=== PATIENT | male | born 1945 | race Caucasian/White ===

== ENCOUNTER → 2022-04-19 | Outpatient (CLI) | payer OTHER ==
--- NOTE | 2022-04-19 15:55 | NM ---
EXAMINATION TYPE: NM DatScan Brain SPECT DATE OF EXAM: 04/19/2022 COMPARISON: NONE HISTORY: Memory loss TECHNIQUE: 10 drops of Lugol's solution was administered 1 hour prior to injection as a thyroid bloc mariana agent. After the administration of 4.8 mCi I-123 Ioflupane DaTscan. Images obtained [address] injection. SPECT images of the brain were acquired with axial and coronal reconstructions. FINDINGS: The axial SPECT images demonstrate increased background activity and symmetric activity wit hin the bilateral striata. IMPRESSION: Normal appearance. Essential tremor in the differential diagnosis.
== END | disposition home or self-care (01) ==
LOC: RADNMMAIN 10:20
PROVIDERS: ATTEND Psychiatry & Neurology Neurology
DX: G25.0 Essential tremor (principal)
CPT/HCPCS: 78803; A9584

== ENCOUNTER 2023-10-15 00:37 | Observation (INO) | payer OTHER, MEDICARE ==
--- NOTE | 2023-10-15 01:07 | ED ---
General Adult HPI - General Chief complaint: Chest Pain Stated complaint: Chest Pain Time Seen by Provider: 10/15/23 00:40 Source: patient, EMS Mode of arrival: EMS Limitations: no limitations - History of Present Illness Initial comments: Dictation was produced using [employer] dictation software. please excuse any grammatical, word or spelling errors. Chief Complaint: 78-year-old male presents to the emergency department chest pain History of Present Illness: Patient 78-year-old male presents emergency department with chest pain x 1 day. Patient was brought in by EMS. Patient denies any cardiac history. States that he has history of MS. Does not have any history of any other comorbidities. Patient states that the pain is sharp to his right substernal area. Nonradiating not associate diaphoresis or nausea. States that is sharp worse with deep inspiration. The ROS documented in this emergency department record has been reviewed and co nfirmed by me. Those systems with pertinent positive or negative responses have been documented in the HPI. All other systems are other negative and/or noncontributory. - Related Data Allergies Allergy/AdvReac Type Severity Reaction Status Date / Time acetaminophen [From Tylenol] AdvReac Rash/Hives Verified 10/15/23 00:48 Review of Systems ROS Statement: Those systems with pertinent positive or pertinent negative responses have been documented in the HPI. ROS Other: All systems not noted in ROS Statement are negative. Past Medical History Additional Past Medical History / Comment(s): MS History of Any Multi-Drug Resistant Organisms: None Reported Past Surgical History: No Surgical Hx Reported Past Psychological History: No Psychological Hx Reported Smoking Status: Former smoker Past Alcohol Use History: None Reported Past Drug Use History: None Reported General Exam - General Exam Comments Initial Comments: PHYSICAL EXAM: General Impression: Alert and oriented x3, not in acute distress HEENT: Normocephalic atraumatic, extra-ocular movements intact, pupils equal and reactive to light bilaterally, mucous membranes moist. Cardiovascular: Heart regular rate and rhythm Chest: Able to complete full sentences, no retractions, no tachypnea Abdomen: abdomen soft, non-tender, non-distended, no organomegaly Musculoskeletal: Pulses present and equal in all extremities, no peripheral edema Motor: no focal deficits noted Neurological: CN II-XII grossly intact, no focal motor or sensory deficits noted Skin: Intact with no visualized rashes Psych: Normal affect and mood Limitations: no limitations Course Vital Signs 10/15/23 10/15/23 10/15/23 00:43 00:47 02:30 Temperature 98.4 F Pulse Rate 65 61 Pulse Rate [ 68 Typist ] Respiratory 18 18 Rate Blood Pressure 140/73 134/63 O2 Sat by Pulse 97 97 Oximetry EKG Findings - EKG Comments: EKG Findings:: My EKG interpretation: Ventricular rate 67, sinus rhythm,. Well 207, cures 89, QTc 4 1. No SD prolongation, no QTC prolongation, no ST or T-wave changes noted. Overall, this EKG is unremarkable Medical Decision Making - Medical Decision Making Was pt. sent in by a medical professional or institution (, PA, VETERINARY ATTENDANT, urgent care, hospital, or long term...) When possible be specific @ -No Did you speak to anyone other than the patient for history (EMS, parent, family, police, friend...)? What history was obtained from this source @ -No Did you review nursing and triage notes (agree or disagree)? Why? @ -I reviewed and agree with nursing and triage notes Were old charts reviewed (outside hosp., previous admission, EMS record, old EKG, old radiological studies, urgent care reports/EKG's, long term records)? Report findings @ -No Differential Diagnosis (chest pain, altered mental status, abdominal pain women, abdominal pain men, vaginal bleeding, musculoskeletal, weakness, fever, dyspnea, syncope, headache, dizziness, GI bleed, back pain, seizure, CVA, palpatations, mental health)? @ -Differential Chest Pain: Stable Angina, Unstable Angina, STEMI, NSTEMI Aortic Dissection, Pneumothorax, Musculoskeletal, Esophageal Spasm GERD, Cholecystitis, Pancreatitis, Zoster, this is not meant to be an all-inclusive list. EKG interpreted by me (3pts min.). @ -See above X-rays interpreted by me (1pt min.). @ -None done CT interpreted by me (1pt min.). @ -CT angiography chest shows no acute processes U/S interpreted by me (1pt. min.). @ -None done What testing was considered but not performed or refused? (CT, X-rays, U/S, labs)? Why? @ -None What meds were considered but not given or refused? Why? @ -None Was smoking cessation discussed for >3mins.? @ -No Were there social determinants of health that impacted care today? How? (Homelessness, low income, unemployed, alcoholism, drug addiction, transportation, low edu. Level, literacy, decrease access to med. care, [place] [facility], rehab)? @ -No Was there de-escalation of care discussed even if they declined (Discuss DNR or withdrawal of care, Hospice)? DNR status @ -No What co-morbidities impacted this encounter? (DM, HTN, Smoking, COPD, CAD, Cancer, CVA, ARF, Chemo, Hep., AIDS, mental health diagnosis, sleep apnea, mo rbid obesity)? @ -None Was patient admitted / discharged? Hospital course, mention meds given and r oute, prescriptions, significant lab abnormalities, going to OR and other pertinent info. @ -78-year-old male presents emergency department with atypical chest pain typical features. Vital signs upon arrival are within acceptable limits. Patient given aspirin by prehospital providers. Laboratory evaluation obtained. Labs are within acceptable limits except for D-dimer 1.09. Patient sent for CT angiography which was negative for PE or any acute processes. Patient will be admitted observation consultation to cardiology. Did you discuss the management of the patient with other professionals (professionals i.e. , PA, VETERINARY ATTENDANT, lab, RT, psych nurse, marriage and family social worker, cheese grader, teacher, staff submarine warfare officer, briefcase sewer)? Give summary @ -Case discussed with hospitalist for admission Was critical care preformed (if so, how long)? @ -No Undiagnosed new problem with uncertain prognosis? @ -No Drug Therapy requiring intensive monitoring for toxicity (Heparin, Nitro, Insulin, Cardizem)? @ -No Were any procedures done? @ -No Diagnosis/symptom? Acute, or Chronic, or Acute on Chronic? Uncomplicated (without systemic symptoms) or Complicated (systemic symptoms)? @ -Chest pain Side effects of treatment? @ -No Exacerbation, Progression, or Severe Exacerbation? @ -No Poses a threat to life or bodily function? How? (Chest pain, USA, NM, pneumonia, PE, COPD, DKA, ARF, appy, cholecystitis, CVA, Diverticulitis, Homicidal, Suicidal, threat to staff... and all critical care pts) @ -yes - Lab Data Result diagrams: 10/15/23 01:02 10/15/23 01:02 Lab Results 10/15/23 10/15/23 10/15/23 Range/Units 01:02 01:02 01:02 WBC 7.0 (3.8-10.6) k/uL RBC 4.30 (4.30-5.90) m/uL Hgb 12.8 L (13.0-17.5) gm/dL Hct 39.4 (39.0-53.0) % MCV 91.6 (80.0-100.0) fL MCH 29.8 (25.0-35.0) pg MCHC 32.5 (31.0-37.0) g/dL RDW 13.3 (11.5-15.5) % Plt Count 240 (150-450) k/uL MPV 7.8 Neutrophils % 65 % Lymphocytes % 24 % Monocytes % 6 % Eosinophils % 2 % Basophils % 0 % Neutrophils # 4.5 (1.3-7.7) k/uL Lymphocytes # 1.7 (1.0-4.8) k/uL Monocytes # 0.4 (0-1.0) k/uL Eosinophils # 0.2 (0-0.7) k/uL Basophils # 0.0 (0-0.2) k/uL D-Dimer 1.09 H (<0.60) mg/L FEU Sodium 140 (137-145) mmol/L Potassium 4.3 (3.5-5.1) mmol/L Chloride 108 H (98-107) mmol/L Carbon Dioxide 24 (22-30) mmol/L Anion Gap 8 mmol/L BUN 22 H (9-20) mg/dL Creatinine 1.16 (0.66-1.25) mg/dL Est GFR (CKD-EPI)AfAm 70 (>60 ml/min/1.73 sqM) Est GFR (CKD-EPI)NonAf 61 (>60 ml/min/1.73 sqM) Glucose 103 H (74-99) mg/dL Calcium 8.8 (8.4-10.2) mg/dL Total Bilirubin 0.5 (0.2-1.3) mg/dL AST 23 (17-59) U/L ALT 14 (4-49) U/L Alkaline Phosphatase 87 (38-126) U/L Troponin I (0.000-0.034) ng/mL NT-Pro-B Natriuret Pep 203 pg/mL Total Protein 6.6 (6.3-8.2) g/dL Albumin 4.1 (3.5-5.0) g/dL 10/15/23 Range/Units 01:02 WBC (3.8-10.6) k/uL RBC (4.30-5.90) m/uL Hgb (13.0-17.5) gm/dL Hct (39.0-53.0) % MCV (80.0-100.0) fL MCH (25.0-35.0) pg MCHC (31.0-37.0) g/dL RDW (11.5-15.5) % Plt Count (150-450) k/uL MPV Neutrophils % % Lymphocytes % % Monocytes % % Eosinophils % % Basophils % % Neutrophils # (1.3-7.7) k/uL Lymphocytes # (1.0-4.8) k/uL Monocytes # (0-1.0) k/uL Eosinophils # (0-0.7) k/uL Basophils # (0-0.2) k/uL D-Dimer (<0.60) mg/L FEU Sodium (137-145) mmol/L Potassium (3.5-5.1) mmol/L Chloride (98-107) mmol/L Carbon Dioxide (22-30) mmol/L Anion Gap mmol/L BUN (9-20) mg/dL Creatinine (0.66-1.25) mg/dL Est GFR (CKD-EPI)AfAm (>60 ml/min/1.73 sqM) Est GFR (CKD-EPI)NonAf (>60 ml/min/1.73 sqM) Glucose (74-99) mg/dL Calcium (8.4-10.2) mg/dL Total Bilirubin (0.2-1.3) mg/dL AST (17-59) U/L ALT (4-49) U/L Alkaline Phosphatase (38-126) U/L Troponin I <0.012 (0.000-0.034) ng/mL NT-Pro-B Natriuret Pep pg/mL Total Protein (6.3-8.2) g/dL Albumin (3.5-5.0) g/dL Disposition Clinical Impression: Chest pain Disposition: ADMITTED IP TO THIS HOSP Condition: Fair Referrals: [facility],Clinic [Primary Care Provider] - 1-2 days Decision Time: 04:37
[2023-10-15 01:24] LABS: Basophils % (A) 0 %; Eosinophils # (A) 0.2 k/uL (0-0.7); Eosinophils % (A) 2 %; HCT 39.4 % (39.0-53.0); HGB 12.8 gm/dL (13.0-17.5); Lymphocytes # (A) 1.7 k/uL (1.0-4.8); Lymphocytes % (A) 24 %; MCH 29.8 pg (25.0-35.0); MCHC 32.5 g/dL (31.0-37.0); MCV 91.6 fL (80.0-100.0); Mean Platelet Volume 7.8; Monocytes # (A) 0.4 k/uL (0-1.0); Monocytes % (A) 6 %; Neutrophils # (A) 4.5 k/uL (1.3-7.7); Neutrophils % (A) 65 %; Platelet Count 240 k/uL (150-450); RDW 13.3 % (11.5-15.5)
[2023-10-15 01:39] LABS: ALT 14 U/L (4-49); AST 23 U/L (17-59); African American GFR (CKD) 70 (>60 ml/min/1.73 sqM); Albumin 4.1 g/dL (3.5-5.0); Alkaline Phosphatase 87 U/L (38-126); Anion Gap 8 mmol/L; Blood Urea Nitrogen 22 mg/dL (9-20); Calcium 8.8 mg/dL (8.4-10.2); Carbon Dioxide 24 mmol/L (22-30); Chloride 108 mmol/L (98-107); Glucose 103 mg/dL (74-99); Non-African American GFR(CKD) 61 (>60 ml/min/1.73 sqM); Potassium 4.3 mmol/L (3.5-5.1); Sodium 140 mmol/L (137-145); Total Bilirubin 0.5 mg/dL (0.2-1.3); Total Protein 6.6 g/dL (6.3-8.2)
[2023-10-15 01:47] LABS: NT-Pro-B-Type Natriuretic Pept 203 pg/mL
--- NOTE | 2023-10-15 03:32 | CT ---
EXAM: CT Angiography Chest With Intravenous Contrast CLINICAL HISTORY: ITS.REASON CT Reason: positive D-dimer TECHNIQUE: Axial computed tomographic angiography images of the chest with intravenous contrast. CTDI is 17.8 mGy and DLP is 475.4 mGy-cm. This CT exam was performed using one or more of the following dose reduction techniques: automated exposure control, adjustment of the mA and/or kV according to patient size, and/or use of iterative reconstruction technique. MIP reconstructed images were created and reviewed. COMPARISON: No relevant prior studies available. FINDINGS: Pulmonary arteries: Unremarkable. No acute pulmonary embolism. Aorta: Atherosclerotic changes of the aorta. No thoracic aortic aneurysm. Lungs: Atelectasis at the lung bases. No mass. Pleural space: Unremarkable. No significant effusion. No pneumothorax. Heart: Unremarkable. No cardiomegaly. No significant pericardial effusion. No evidence of RV dysfunction. Bones/joints: Degenerative changes of the spine. No acute fracture. No dislocation. Soft tissues: Unremarkable. Lymph nodes: Unremarkable. No enlarged lymph nodes. Liver: Hepatic steatosis. Gallbladder and bile ducts: Cholecystectomy. IMPRESSION: No acute pulmonary embolism.
[2023-10-15] MEDS ORDERED: NITROGLYCERIN SL TABS 0.4 MG TAB SUBLINGUAL PRN (04:34)
--- NOTE | 2023-10-15 04:54 | P.HPIM ---
History of Present Illness H&P Date: 10/15/23 Patient is a 78-year-old male with a PMH of multiple myeloma who presents to the emergency room with complaints of left-sided chest discomfort. Patient reports that his pain started roughly around 5 PM with severe left-sided and substernal pleuritic chest discomfort, 8 out of 10 at maximal intensity, with no associated symptoms. He does report that earlier in the day he was out doing grocery benson pping with his and was pushing heavier than usual cart. He denies experiencing lower extremity swelling or pain. Also denies recent immobilization or trips. Denies fever, chills, cough, shortness of breath, nausea, vomiting, diaphoresis, or dizziness. Reports that the pain has persisted since onset at 5 PM and is somewhat unchanged at the time of interview. Chest CTA in the emergency room was unremarkable with EKG showing normal sinus rhythm at [address]/T wave changes noted as reviewed by me. Laboratory evaluation was remarkable for troponin less than 0.012, proBNP 203, WBC count 7.0, hemoglobin 12.8, platelet count 240, D-dimer 1.09, sodium 140, chloride 108, BUN 22, creatinine 1.16. ED documentation reviewed and case discussed with ED provider. Review of systems: Pertinent positives and negatives as discussed in HPI, a complete review of systems was performed and all other systems are negative. Physical examination: Vital signs reviewed General: non toxic, no distress, appears at stated age, obese Derm: no unusual rashes/lesions, warm Head: atraumatic, normocephalic, symmetric Eyes: EOMI, no lid lag, anicteric sclera, pupils equal round reactive to light ENT: Nose and ears atraumatic Neck: No cervical lymphadenopathy, trachea midline, supple Mouth: no lip lesion, mucus membranes moist Cardiovascular: S1S2 reg, no murmur, positive dorsalis pedis pulse bilateral, no edema, no tenderness on chest palpation Lungs: CTA bilateral, no rhonchi, no rales, no accessory muscle use Abdominal: soft, nontender to palpation, no guarding Ext: muscle strength 5 out of 5 in all 4 extremities grossly, no gross muscle atrophy, no contractures, Neuro: CN II-XI grossly intact, no gross focal neuro deficits Psych: Alert, oriented, appropriate affect Assessment: Atypical chest pain Chronic conditions: Multiple myeloma Imaging: Chest CTA in the emergency room was unremarkable with EKG showing normal sinus rhythm at [address]/T wave changes noted as reviewed by me. Data Review: Laboratory evaluation was remarkable for troponin less than 0.012, proBNP 203, WBC count 7.0, hemoglobin 12.8, platelet count 240, D-dimer 1.09, sodium 140, chloride 108, BUN 22, creatinine 1.16. Plan: Cardiology consulted Cardiac monitoring Trend troponin Continue with aspirin and statin DVT prophylaxis: Lovenox subcu The patient is admitted with an anticipated fewer than 2 midnight stay for evaluation of chest pain CODE STATUS: Full Code Discussed with: Patient Anticipated discharge place: Home Past Medical History Additional Past Medical History / Comment(s): MS History of Any Multi-Drug Resistant Organisms: None Reported Past Surgical History: No Surgical Hx Reported Past Psychological History: No Psychological Hx Reported Smoking Status: Former smoker Past Alcohol Use History: None Reported Past Drug Use History: None Reported - Past Family History Mother Family Medical History: Hyperlipidemia Medications and Allergies Allergies Allergy/AdvReac Type Severity Reaction Status Date / Time acetaminophen [From Tylenol] AdvReac Rash/Hives Verified 10/15/23 00:48 Physical Exam Vitals: Vital Signs Temp Pulse Pulse Resp BP Pulse Ox 10/15/23 02:30 61 18 134/63 97 10/15/23 00:47 68 10/15/23 00:43 98.4 F 65 18 140/73 97 Intake and Output 10/14/23 10/14/23 10/15/23 14:59 22:59 06:59 Other: Weight 88.451 kg Results CBC & Chem 7: 10/15/23 01:02 10/15/23 01:02 Labs: Abnormal Lab Results - Last 24 Hours (Table) 10/15/23 10/15/23 10/15/23 Range/Units 01:02 01:02 01:02 Hgb 12.8 L (13.0-17.5) gm/dL D-Dimer 1.09 H (<0.60) mg/L FEU Chloride 108 H (98-107) mmol/L BUN 22 H (9-20) mg/dL Glucose 103 H (74-99) mg/dL
[2023-10-15] MEDS: ATORVASTATIN 80 MG TAB PO STA (05:55)
[2023-10-15] MEDS: ENOXAPARIN 40 MG/0.4 ML SYRINGE SQ SCH (08:46)
--- NOTE | 2023-10-15 10:42 | P.CRDCN ---
History of Present Illness Consult date: 10/15/23 Consult reason: chest pain History of present illness: This is a 78-year-old male with no previous cardiac history, does not follow with a upper leather cutter. Patient presented to the hospital with sharp right substernal chest pain, nonradiating. No diaphoresis no nausea. Pain was worse with deep inspiration. He states the pain was very severe yesterday and was not sure what caused the pain to start. He states he is active and usually does ya [employer] work and does not have an issue with chest pain. He states it was only in 1 spot did not radiate anywhere. Blood pressure 129/72, heart rate 61, pulse ox 95% on room air. Afebrile. Patient has been started on aspirin 325 mg, a atorvastatin 80 mg, Lovenox and Nitrostat. EKG: Sinus rhythm with no acute ST-T wave changes. CTA of the chest reveals no pulmonary embolism. Laboratory studies: WBC 7, hemoglobin 12.8. D-dimer 1.09. Sodium 140, potassium 4.3, BUN 22 creatinine 1.16. Troponin negative x 2. proBNP 203. Home cardiac medications: None Review Of Systems: At the time of my exam: CONSTITUTIONAL: Denies fever or chills. HEENT: Denies blurred vision, vision changes, or eye pain. Denies hemoptysis CARDIOVASCULAR: Denies chest pain. Denies orthopnea. Denies PND. Denies palpitations RESPIRATORY: Denies shortness of breath. GASTROINTESTINAL: Denies abdominal pain. Denies nausea or vomiting. HEMATOLOGIC: Denies bleeding disorders. GENITOURINARY: Denies any blood in urine. SKIN: Denies puritis. Denies rash. Physical examination: Gen: This is a 78-year-old male in no acute distress VS: reviewed HEENT: Head is atraumatic, normocephalic. Pupils equal, round. Sclerae is anicte guerline. NECK: Supple. No JVD. LUNGS: Clear to auscultation. No wheezes or rhonchi. No intercostal re tractions. HEART: Regular rate and rhythm. No murmur. ABDOMEN: Soft No tenderness. EXTREMITIES: No pedal edema. No calf tenderness. NEUROLOGICAL: Patient is awake, alert and oriented x3. Assessment: Atypical chest pain, acute coronary syndrome ruled out Memory loss Plan: Schedule patient for dobutamine stress test tomorrow Obtain 2-D echocardiogram and Doppler study to assess cardiac structure and function If testing is unremarkable, patient is cleared for discharge home tomorrow Further recommendations to follow based upon clinical course Thank you kindly for this consultation. Nurse practitioner note has been reviewed, I agree with documented findings and plan of care. Patient was seen and examined. Past Medical History Additional Past Medical History / Comment(s): MS History of Any Multi-Drug Resistant Organisms: None Reported Past Surgical History: No Surgical Hx Reported Past Psychological History: No Psychological Hx Reported Smoking Status: Former smoker Past Alcohol Use History: None Reported Past Drug Use History: None Reported - Past Family History Mother Family Medical History: Hyperlipidemia Medications and Allergies Home Medications Medication Instructions Recorded Confirmed Type Donepezil [Aricept] 10 mg PO DAILY 10/15/23 10/15/23 History Allergies Allergy/AdvReac Type Severity Reaction Status Date / Time acetaminophen [From Tylenol] AdvReac Rash/Hives Verified 10/15/23 09:55 Physical Exam Vitals: Vital Signs Temp Pulse Pulse Resp BP Pulse Ox 10/15/23 06:00 61 20 129/72 95 10/15/23 05:00 68 18 144/97 97 10/15/23 02:30 61 18 134/63 97 10/15/23 00:47 68 10/15/23 00:43 98.4 F 65 18 140/73 97 Intake and Output 10/14/23 10/15/23 10/15/23 22:59 06:59 14:59 Other: Weight 88.451 kg Results 10/15/23 01:02 10/15/23 01:02 Cardiac Enzymes 10/15/23 10/15/23 10/15/23 Range/Units 01:02 01:02 06:13 AST 23 (17-59) U/L Troponin I <0.012 <0.012 (0.000-0.034) ng/mL CBC 10/15/23 Range/Units 01:02 WBC 7.0 (3.8-10.6) k/uL RBC 4.30 (4.30-5.90) m/uL Hgb 12.8 L (13.0-17.5) gm/dL Hct 39.4 (39.0-53.0) % Plt Count 240 (150-450) k/uL Comprehensive Metabolic Panel 10/15/23 Range/Units 01:02 Sodium 140 (137-145) mmol/L Potassium 4.3 (3.5-5.1) mmol/L Chloride 108 H (98-107) mmol/L Carbon Dioxide 24 (22-30) mmol/L BUN 22 H (9-20) mg/dL Creatinine 1.16 (0.66-1.25) mg/dL Glucose 103 H (74-99) mg/dL Calcium 8.8 (8.4-10.2) mg/dL AST 23 (17-59) U/L ALT 14 (4-49) U/L Alkaline Phosphatase 87 (38-126) U/L Total Protein 6.6 (6.3-8.2) g/dL Albumin 4.1 (3.5-5.0) g/dL Current Medications Generic Name Dose Route Start Last Admin Trade Name Freq PRN Reason Stop Dose Admin Aspirin 325 mg 10/16/23 09:00 Aspirin 325 Mg Tab PO DAILY GARRISON Atorvastatin Calcium 80 mg 10/15/23 21:00 Atorvastatin 80 Mg Tab PO HS [facility] Enoxaparin Sodium 40 mg 10/15/23 09:00 Enoxaparin 40 Mg/0.4 Ml Syringe SQ DAILY GARRISON Nitroglycerin 0.4 mg 10/15/23 04:34 Nitroglycerin Sl Tabs 0.4 Mg Tab SUBLINGUAL Q5M PRN Chest Pain Intake and Output 10/14/23 10/15/23 10/15/23 22:59 06:59 14:59 Other: Weight 88.451 kg 10/15/23 01:02 10/15/23 01:02
[2023-10-15] MEDS ORDERED: MELATONIN 5 MG TABLET PO PRN (10:56)
[2023-10-15] MEDS ORDERED: ALBUTEROL NEBULIZED 2.5 MG/3 ML INHALATION PRN (10:56)
[2023-10-15] MEDS ORDERED: ONDANSETRON 4 MG/2 ML VIAL IVP PRN (10:56)
--- NOTE | 2023-10-15 16:14 | P.PN ---
Progress Note - Text Progress Note Date: 10/15/23 (delayed charting seen at 1020) Hospitalist Interval Note Patient seen and examined at bedside. Currently chest pain-free, feeling back to baseline. Has a history of multiple sclerosis not multiple myeloma. No longer on injectable medications at the recommendation of his neurologist. Vital signs reviewed General: Non toxic, no distress, appears at stated age Cardiovascular: S1S2 reg, no murmur, positive posterior tibial pulse bilateral, Lungs: CTA bilateral, no rhonchi, no rales, no accessory muscle use Abdominal: Soft, nontender to palpation, no guarding, no appreciable organomegaly Ext: No gross muscle atrophy, no edema, no contractures Assessment/Plan: Chest pain -Patient currently chest pain free. Feeling much better. Willing to stay until tomorrow for dobutamine stress test. -Remainder of plan remains unchanged. This is an update note for patient , for full note on 10/15/2023 see H&P. There is no charge associated with this note.
[2023-10-15] MEDS: ATORVASTATIN 80 MG TAB PO SCH (21:39)
[2023-10-16] MEDS ORDERED: DOBUTamine DRIP for NUC MED 500 MG in DEXTROSE/WATER 1 250ML.BAG IV PRN (06:00)
[2023-10-16] MEDS ORDERED: DOBUTamine DRIP for NUC MED 500 MG/250 ML BAG IV ONE (08:00)
[2023-10-16] MEDS: DONEPEZIL 10 MG TAB PO SCH (08:37)
[2023-10-16] MEDS: ASPIRIN 325 MG TAB PO SCH (08:38)
[2023-10-16 11:06] LABS: Chol/HDL Ratio 3.08 Ratio; LDL Cholesterol,Calculated 84.3 mg/dL (0.0-131.0)
--- NOTE | 2023-10-16 12:20 | CA ---
Dobutamine Stress Echocardiogram Report David Sheets Age: 78 Gender: M : 1945 Exam Date: 10/16/2023 09:43 Exam Location: [facility] Ordering Physician: Amina Hernandez Referring Physician: [id number] Jaramillo Assistant Corporate Controller: Dana Chavira RDCS Technologist: Ht (in): 65 Wt (lb): 195 Procedure CPT: Indication: Chest Pain ICD-9 Codes: Rhythm: Patient History: CHEST PAIN, DIFFICULTY IN BREATHING, PRIOR SMOKER Cardiac Medications: Medications in past 24 hours: Contrast: N/A Total Dose (mL): Stress Results Protocol: Dobutamine Peak Dose (???g/kg/min): 20 Duration (min:sec): Atropine:(mg) Target HR: 122 Double Product: Resting HR: 68 Resting BP: 125 / 75 Peak HR: 126 Peak BP: 156 / 50 Max Predicted HR: 143 88 % Max Predicted HR Stress Summary: BP Response: Reason for Termination: Target HR Cardiac Symptoms: NO SYMPTOMS ECG Analysis Resting EKG: Stress EKG: Arrhythmia: Echo Analysis Base Echo Analysis: Low Echo Anaylsis: Peak Echo Analysis: Recovery Echo: MEASUREMENTS (Male/Female) Normal Values CONCLUSIONS Patient underwent dobutamine stress echo with infusion of dobutamine into Stage 3 for a total of 7 minutes and 37 seconds. Patient's maximum heart rate was 126 which represented 88% age- predicted maximum heart rate. Stress EKG portion: At baseline patient's EKG showed normal sinus rhythm, normal axis, no significant ST or T wave abnormalities. At peak dobutamine infusion, EKG showed no significant change from baseline. Stress echo portion: 2-D echocardiogram was performed in the parasternal long, personal short, apical 2 and apical four-chamber views at rest, low-dose, peak infusion and in recovery. At baseline, echocardiogram showed left ventricular ejection fraction 55% without wall motion abnormalities. With peak infusion, echocardiogram shows improvement in left ventricular ejection fraction, increase contractility, decrease in left ventricular end systolic dimension without wall motion abnormalities consistent with a normal response to dobutamine. Conclusions: 1. Normal stress EKG and echo response to dobutamine infusion without any evidence of inducible ischemia. Dr. Frank Magana DO (Electronically Signed) Final Date: 16 October 2023 12:19
[2023-10-16 14:37] VITALS: BP 126/72; PULSE 63; RESP 15; TEMP 98
--- NOTE | 2023-10-16 14:59 | P.PN ---
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 Patient presented to the hospital with sharp right substernal chest pain, nonradiating. No diaphoresis no nausea. Pain was worse with deep inspiration. He states the pain was very severe yesterday and was not sure what caused the pain to start. He states he is active and usually does yard work and does not have an issue with chest pain. He states it was only in 1 spot did not radiate anywhere. Blood pressure 129/72, heart rate 61, pulse ox 95% on room air. Afebrile. Patient has been started on aspirin 325 mg, a atorvastatin 80 mg, Lovenox and Nitrostat. EKG: Sinus rhythm with no acute ST-T wave changes. CTA of the chest reveals no pulmonary embolism. Laboratory studies: WBC 7, hemoglobin 12.8. D-dimer 1.09. Sodium 140, potassium 4.3, BUN 22 creatinine 1.16. Troponin negative x 2. proBNP 203. Home cardiac medications: None 10/15 patient seen and examined. Patient still having reproducible chest pain with palpation of his left fifth rib. He underwent dobutamine stress echo which shows no inducible ischemia. Physical examination: Gen: This is a 78-year-old male in no acute distress VS: reviewed HEENT: Head is atraumatic, normocephalic. Pupils equal, round. Sclerae is anicteric. NECK: Supple. No JVD. LUNGS: Clear to auscultation. No wheezes or rhonchi. No intercostal retractions. HEART: Regular rate and rhythm. No murmur. ABDOMEN: Soft No tenderness. EXTREMITIES: No pedal edema. No calf tenderness. NEUROLOGICAL: Patient is awake, alert and oriented x3. Assessment: Atypical chest pain, acute coronary syndrome ruled out Memory loss Plan: stress test shows no inducible ischemia and chest pain is atypical more reproducible. Stable for discharge home from a cardiology standpoint. Objective - Vital Signs Vital signs: Vital Signs Temp 98.0 F 10/16/23 14:36 Pulse 63 10/16/23 14:36 Resp 15 10/16/23 14:36 BP 126/72 10/16/23 14:36 Pulse Ox 97 10/16/23 14:36 FiO2 Intake & Output 10/15/23 10/16/23 10/16/23 18:59 06:59 18:59 Intake Total 0 118 Balance 0 118 Weight 88.451 kg Intake: Oral 0 118 Other: Voiding Method Toilet # Voids 1 3 # Bowel Movements 1 - Labs CBC & Chem 7: 10/15/23 01:02 10/15/23 01:02
--- NOTE | 2023-10-16 15:06 | P.DS ---
Providers Date of admission: 10/15/23 04:34 Expected date of discharge: 10/16/23 Attending physician: Ranjeet Cowart MD Consults: 10/15/23 04:34 Consult Physician Urgent Consulting Provider: Frank Magana Consult Reason/Comments: chest pain Do you want consulting provider notified?: Yes Primary care physician: [facility] Hospital Course: Discharge Diagnosis: Chest pain, acute coronary event ruled out. Multiple sclerosis Elevated D-dimer, CTA negative for PE. Hospital Course: Patient is a pleasant 78-year-old male with a past medical history of MS. He presented to the emergency on 10/15/2023 with a chief complaint of chest pain. Upon arrival to our facility, patient underwent evaluation in the emergency department. Vital signs upon arrival show blood pressure 140/73, heart rate 65, respiratory rate 18, temp 98.4 F, and SpO2 of 97% on room air. EKG completed showing normal sinus rhythm at 67 bpm with no significant T wave or ST abnormalities showing no signs of acute ischemia upon personal review and interpretation. Labs were completed and reviewed. CBC was unremarkable with exception of stable normocytic anemia with hemoglobin of 12.8. BMP showing hyperchloremia with chloride of 108, otherwise normal findings. Troponin was negative at less than 0.012 with proBNP of 203. D-dimer was elevated at 1.09. Chest was completed negative for acute pulmonary emboli or acute cardiopulmonary process reported. Patient was admitted under our services with consultation to cardiology. Troponins were trended overnight all were negative at less than 0.012 x 3 draws. Patient underwent a dobutamine stress echo was reported to be normal stress EKG and echo response to dobutamine infusion without any evidence of inducible ischemia. Lipid profile unremarkable. Discussed with air sampler patient cleared from cardiology standpoint for discharge recommending outpatient follow-up in their office for full echocardiogram and follow-up. Patient currently free from any complaints at this time and is medically stable for discharge at this time. Patient to follow-up outpatient with PCP in 1 to 2 days and with air sampler in 1 week. Physical exam: Patient seen and examined at bedside. Vital signs reviewed and stable. General: Nontoxic, no distress and appears stated age. Derm: Skin warm and dry, normal coloration for ethnicity. Head: Atraumatic, normocephalic and symmetric. Eyes: EOMs intact, no lid lag, and anicteric sclera Mouth: no lip lesions, mucus membranes moist Cardiovascular: regular rate and rhythm with normal S1S2, no murmur, positive posterior tibial pulses bilaterally, and cap refill < 2 seconds. Lungs: Respirations even, regular, and unlabored on room air. Lungs CTA bilaterally, no rhonchi, no rales, no wheezing, and no accessory muscle usage. Abdominal: soft, nontender to palpation, no guarding, no appreciable organomegaly Ext: ROM intact. No gross muscle atrophy, no edema, no contractures Neuro: Speech clear, face symmetrical and CN II-XII grossly intact with no noted focal neuro deficits Psych: Alert and oriented to person, place, time, and situation. Appropriate and pleasant affect. A total of 31 minutes of time were spent preparing this complex discharge summary. Pt was discharged on 10/16/2023 at 2:58 PM. Patient was seen independently by Nurse Practitioner. This document was prepared using [employer] dictation software. Please allow for errors in coiled tubing operator while rare they do occur. .I reviewed the documentation as provided by the TAMIR above, who is the original author of this note. I agree with the documented assessment and plan, with the following changes: none Patient Condition at Discharge: Stable Plan - Discharge Summary Discharge Rx Participant: No New Discharge Prescriptions: Continue Donepezil [Aricept] 10 mg PO DAILY Discharge Medication List Donepezil [Aricept] 10 mg PO DAILY 10/15/23 [History] Follow up Appointment(s)/Referral(s): Frank Magana DO [STAFF PHYSICIAN] - 1 Week (You need to follow up outpatient in office for follow up and a recommended echocardiogram Office will call with appointment time and date.) [facility] [place] [Primary Care Provider] - 1-2 days Patient Instructions/Handouts: Chest Pain (DC) Activity/Diet/Wound Care/Special Instructions: Activity: As tolerated. Take breaks as needed. Diet: Heart healthy and carb consistent diet. Avoid salts, or foods with hidden salts such as canned or boxed foods and frozen dinners. Extra salt makes your heart work harder and traps the fluid in your body for longer. Special Instructions: Take all of your medications as directed and remember to keep all of your doctor's appointments and follow-up as needed. Again thank you for your service, it is always an honor to have the opportunity to participate in the care of a !!! Thank you for allowing us to participate in your care, it was truly a pleasure having you for our patient!!! Discharge Disposition: HOME SELF-CARE
== END 2023-10-16 15:43 | disposition home or self-care (01) ==
LOC: EC 00:37 → 6NMEDSUR 04:34
PROVIDERS: ADMIT Internal Medicine; ATTEND Internal Medicine
DX: R07.89 Other chest pain (principal); G35 Multiple sclerosis; R79.89 Other specified abnormal findings of blood chemistry; E87.8 Other disorders of electrolyte and fluid balance, not elsewhere classified; D64.9 Anemia, unspecified; C90.00 Multiple myeloma not having achieved remission; Z87.891 Personal history of nicotine dependence
CPT/HCPCS: 99285; 36415; 93005; 93351; 85379; 83880; 80061; 80053; 84484; 85025; 71275; G0378 ×2; Q9967